=== PATIENT | male | born 1965 | race Caucasian/White ===

== ENCOUNTER 2023-06-27 23:29 | Inpatient (IN) | payer OTHER, SELFPAY ==
[2023-06-27 20:19] VITALS: BP 136/79
[2023-06-27 20:34] VITALS: BP 150/83
[2023-06-27 20:43] VITALS: BMI 27.7
--- NOTE | 2023-06-27 20:53 | ED.GENMED ---
History of Present Illness
General
Chief Complaint: Abdominal Pain
Time Seen by Provider: 06/27/23 20:32
Travel History
Have you had any contact with someone who has COVID-19?: No
Do you have any symptoms of coronavirus? Fever > 100 degrees, chills, cough, shortness of breath, sore throat, loss of taste or smell, muscle aches, or headache?: No
History of Present Illness
History of Present Illness:
57-year-old male with history of GERD presents to the emergency department for evaluation of general abdominal pain developing last night, pain worsened and progressed to the back this morning of fevers and urinary frequency. Was seen in urgent
care earlier this evening and referred to the emergency department for further evaluation. Prior abdominal surgeries include cholecystectomy. No nausea or vomiting. He is visiting here from [facility] on a business trip
Review of Systems
Review of Systems
Allergies reviewed?: Yes
All Other Systems: ROS reviewed and negative except as documented in HPI and ROS
Phy Exam
Physical Exam
Physical Exam:
GEN: Well appearing, NAD, WDWN
Eyes: PERRLA, EOMs intact, no scleral icterus
HENT: NCAT, oral mucosa moist
Lungs: CTAB, no wheezes, rales, rhonchi, normal chest wall excursion
Cardiac: RRR, no M/R/G, no peripheral edema. Radial pulses 2+ bilat
Abdomen: Soft, no rigidity however moderate to severe tenderness to the lower abdomen diffusely
Neuro: AO x 3
MSK: No gross deformity or ecchymosis. No edema. No digital clubbing
Skin: No rashes, petechiae. Normal color, no pallor or jaundice.
Psych: Calm, cooperative, proper hygiene
Course
Orders/Labs/Results
Orders:
Orders
06/27/23 20:44
CT Abd/Pel (IV only)-DH only Urgent
Comment:
Reason For Exam: lower abd pain/fever
0.9% Sodium Chloride 1000 ml [Nss] 1,000 ml IV BOLUS
Diphenhydramine [Benadryl] 25 mg IV NOW STA
Hydrocortisone Sod Succinate [Solu-Cortef] 200 mg IV NOW STA
Ketorolac [Toradol] 15 mg IV NOW STA
06/27/23 20:54
Complete Blood Count/With Diff Urgent
Comprehensive Metabolic Panel Urgent
Lactic Acid Q4H
Comment: CANCEL 2nd LACTIC ACID IF 1st LACTIC ACID IS LESS THAN 2
Urinalysis Reflex To Culture Urgent
Date Specimen was Collected: 06/27/23
Time Specimen was Collected: 20:47
Urine Microscopic Reflex Cult Urgent
Blood Culture Q30M
SILVANA Source: Blood/Venous
Specimen Description:
Blood Culture Q30M
SILVANA Source: Blood/Venous
Specimen Description:
06/27/23 22:45
Piperacillin/Tazo 3.375 Gram [Zosyn] 3.375 gram in 50 ml IV NOW
06/27/23 23:13
Admit/Transfer Patient As Directed
Co-Sign Provider:
Level of Care: Inpatient admission
Assign to:: Medical/Surgical
Physician / Group: Donnie
Diagnosis: Diverticulitis
Reason for Hospitalization: IVFs, IV abx
Expected length of stay greater than two midnights?: Yes
ELOS- Estimated Length of Stay in days: 3
I certify the patient meets the requirements for IP care: Yes
Code Status As Directed
Resuscitation Status: Full Code
Abnormal Lab Results
06/27/23
20:54
WBC 16.5 H 10^3/uL
(4.8-10.8)
Abs Immat Gran (auto) 0.1 H 10^3/uL
(0-0.05)
Absolute Neuts (auto) 13.5 H 10^3/uL
(1.4-6.5)
Absolute Monos (auto) 1.6 H 10^3/uL
(0.1-0.6)
Neutrophils % 82.0 H %
(42.2-75.2)
Lymphocytes % 7.3 L %
(20.5-51.1)
Monocytes % 9.9 H %
(1.7-9.3)
Carbon Dioxide 20 L mmol/L
(22-30)
Glucose 119 H mg/dl
(70-99)
Ur Occult Blood Reflex 3+ A
(Negative)
Urine RBC 3-6 A /HPF
(0-2)
Urine Bacteria (Reflex) Few A
(Negative)
06/27/23 20:54
06/27/23 20:54
Vital Signs
Initial and Last Documented VS:
Initial Vital Signs
Temp Pulse Resp BP Pulse Ox
99.9 F 109 18 136/79 95
06/27/23 20:19 06/27/23 20:19 06/27/23 20:19 06/27/23 20:19 06/27/23 20:19
Last Documented Vital Signs
Temp Pulse Resp BP Pulse Ox
99.9 F 105 16 144/81 94
06/27/23 20:19 06/27/23 20:36 06/27/23 20:36 06/27/23 22:00 06/27/23 22:15
MDM/Problems Addressed
MDM/Problems Addressed:
CT reveals contained microperforation of sigmoid diverticulitis, patient is septic with fever and high leukocytosis. Will admit for IV antibiotics and colorectal surgery consultation
*Critical Care Note
Total Time (30-74mins, 75-104mins- exclusive of procedures): Not Applicable
ED Attending Note
-
Portions of this chart may have been created with voice recognition software.� Occasional wrong word or��sound alike� substitutions may have occurred due to the inherent limitations of voice recognition software.
Discharge Plan
Departure
Patient Disposition: Admit
Date of Disposition: 06/27/23
Time of Disposition: 22:58
Presentation/result/management discussed w/ accepting MD/DO: Hospitalist
Discharge Problem:
Diverticulitis of colon with perforation
Interventions
Interventions:
*Risk Screen - Suicide Last Done: 06/27/23 20:19
*General Assessment Last Done: 06/27/23 20:19
*Neglect/Abuse Screening Last Done: 06/27/23 20:19
ED- Fall Risk Assessment Last Done: 06/27/23 20:35
*ED COVID-19 Vaccine History Last Done: 06/27/23 20:43
KG-Bwbimc-Vsdgwbwiin Assessment Last Done: 06/27/23 20:35
[2023-06-27 21:00] VITALS: BP 122/74
[2023-06-27] MEDS: TORADOL 15 MG IV (21:02)
[2023-06-27] MEDS: SOLU-CORTEF 200 MG IV (21:03)
[2023-06-27] MEDS: NSS 1000 IV (21:03)
[2023-06-27 21:06] LABS: % Basophils 0.1 % (0-2); % Eosinophils 0.3 % (0-6); % Immature Granulocytes 0.4 % (0-0.5); % Lymphocytes 7.3 % (20.5-51.1); % Monocytes 9.9 % (1.7-9.3); Absolute Eosinophils 0.1 10^3/uL (0-0.7); Absolute Immature Granulocytes 0.1 10^3/uL (0-0.05); Absolute Lymphocytes 1.2 10^3/uL (1.2-3.4); Absolute Monocytes 1.6 10^3/uL (0.1-0.6); Absolute Neutrophils 13.5 10^3/uL (1.4-6.5); Hematocrit 40.8 % (39.0-52.0); Hemoglobin 14.7 g/dL (13.0-18.0); Mean Corpuscular Hgb 29.8 pg (27.0-31.0); Mean Corpuscular Volume 82.6 fL (80.0-94.0); Mean Platelet Volume 9.3 fL (7.4-10.4); Nucleated Red Blood Cells % 0 % (-); Platelet Count 208 10^3/uL (130-400); Red Blood Cell Count 4.94 10^6/uL (4.70-6.10); Red Cell Dist. Width 12.5 % (11.5-14.5); Urine Albumin Negative (Neg - Trace); Urine Bilirubin Negative (Negative); Urine Character Clear (Clear); Urine Color Yellow; Urine Glucose Negative (Negative); Urine Ketone Negative (Negative); Urine Leukocyte Negative (Negative); Urine Nitrite Negative (Negative); Urine Occult Blood 3+ (Negative); Urine Specific Gravity 1.015 (<1.030); Urine Urobilinogen Negative (Neg - 1+); White Blood Cell Count 16.5 10^3/uL (4.8-10.8)
[2023-06-27 21:16] LABS: Urine Squamous Cell 0-2 /LPF (Few)
[2023-06-27 21:17] LABS: Urine Bacteria Few (Negative); Urine Mucus Moderate; Urine White Cell 0-2 /HPF (0-5)
[2023-06-27 21:18] LABS: Lactic Acid 1.2 mmol/L (0.7-2.0)
[2023-06-27 21:19] LABS: ALT (SGPT) 24 U/L (0-50); AST (SGOT) 30 U/L (17-59); Albumin 4.2 g/dl (3.5-5.0); Alkaline Phosphatase 73 U/L (38-126); Blood Urea Nitrogen 18 mg/dl (9-20); Calcium 9.6 mg/dl (8.4-10.2); Carbon Dioxide 20 mmol/L (22-30); Chloride 105 mmol/L (98-107); Estimated Creatinine Clearance 99 ml/min; Glucose 119 mg/dl (70-99); Sodium 135 mmol/L (135-145); Total Bilirubin 1.3 mg/dl (0.2-1.3); Total Protein 6.8 g/dl (6.3-8.2); eGFR > 60.00
[2023-06-27 22:00] VITALS: BP 144/81
[2023-06-27] MEDS: BENADRYL 25 MG IV (22:08)
[2023-06-27] MEDS: ZOSYN 50 IV (22:56)
--- NOTE | 2023-06-27 23:08 | W.PN.UPDATE ---
Update Note
Progress Note Update
This note is an addendum to H&P written by JANETH Kauffman
I saw and examined the patient.
The PROSTHETIC TECHNICIAN's note was reviewed and I agree with the note.
Comment:
Mr. Elizabeth Minor is a 57 yo man with hx GERD presents to the ER with generalized abdominal pain that started last ngiht.
Triage VS: T 99.9, P 109, RR 18, BP 136/79, SpO2 95%
LABS: WBC 16.5, Hg 14.7, PLT 208, Na 135, K+ 4.0, Cl 105, CO2 20, Cr 0.9, Glucose 119, liver enzymes WNL
CT A/P
IMPRESSION:
Mild to moderate acute diverticulitis of the mid sigmoid colon with small contained perforation.
Mild hepatomegaly with fatty infiltration.
MAR: benadryl/hydrocortisone; Toradol, IVF bolus, IV Zosyn
Acute Diverticulitis with small contained perforation
Sepsis secondary to above
-admit to med/surg
-continue IV Zosyn
-NPO
-CRS consult
-pain control
--- NOTE | 2023-06-27 23:18 | HPS.HSE ---
Family Physician
-
Family Physician: NOT KNOW UNKNOWN - PT DOES
Chief Complaint
-
Abdominal Pain
History of Present Illness
Patient is a 57 y/o male without significant past medical history who presents with abdominal pain. Patient reports pain began last evening. He describes pain mostly in the lower regions. He reports some associated urinary frequency, and fever
prior to presentation. He denies prior history of diverticulitis. He reports a negative Cologuard test a few years thus he never had a colonoscopy.
Medical History
Past Medical History
Past Medical History: Reports Other
Additional Past Medical History:
GERD
Past Surgical History: Reports Other
Additional Past Surgical History:
Cholecystectomy
Social History
Tobacco: Non-smoker
Alcohol: Occasional
Family History
Family History: Not pertinent
Allergies / Home Medications
Allergies reflects when Allergies were last updated in [facility].
Home Medications with original date entered in [facility]
Allergy/Medication List:
Allergies
Allergy/AdvReac Type Severity Reaction Status Date / Time
iodine Allergy Unknown Unknown Verified 06/27/23 20:19
Home Medications
omeprazole 20 mg capsule,delayed release 20 mg PO DAILY PRN indigestion 06/27/23
Review of Systems
-
A 12 point ROS was completed and negative except as noted: Yes
Constitutional: Reports Fever
Respiratory: Denies Cough or Trouble Breathing
Cardiac: Denies Chest Pain or Palpitations
Abdomen/GI: Reports See HPI
Physical Exam
Vital Signs
Vital Signs
Temp Pulse Resp BP Pulse Ox
99.9 F 105 16 144/81 94
06/27/23 20:19 06/27/23 20:36 06/27/23 20:36 06/27/23 22:00 06/27/23 22:15
Physical Exam
General: Comfortable and Conversant
HEENT: Anicteric and Moist mucous membranes
Respiratory: Clear and Non Labored Respirations
Cardiac: S1/S2, Regular Rhythm and Tachycardia (Slightly)
GI: Soft, Non Distended and Tender (Mild in LLQ, Moderate in Suprapubic and RLQ without rebound or guarding)
Rectal: Deferred by Provider
Musculoskeletal: No Clubbing, No Cyanosis and No Edema
Skin: Warm and Dry
Neuro: Awake, Alert, Oriented and No Motor Deficits
Psych: Calm
Laboratory Results
-
06/27/23 20:54
06/27/23 20:54
Laboratory Results
Lactic Acid 1.2 mmol/L (0.7-2.0) 06/27/23 20:54
Total Bilirubin 1.3 mg/dl (0.2-1.3) 06/27/23 20:54
AST 30 U/L (17-59) 06/27/23 20:54
ALT 24 U/L (0-50) 06/27/23 20:54
Alkaline Phosphatase 73 U/L (38-126) 06/27/23 20:54
Data Reviewed
-
Lab Data: Labs Reviewed by me
Impression/Plan
-
Sepsis secondary to Diverticulitis with Microperforation
-Consult Colorectal Surgery
-Continue NPO/IVFs
-Continue Zosyn
-Continue Dilaudid for pain
DVT proph: Lovenox
Code Status: Full Code
[2023-06-28 00:44] VITALS: BP 115/65; BMI 27.0
[2023-06-28] MEDS: D5/0.45%NACL 1000 IV ×3 (00:52→23:19)
[2023-06-28] MEDS: DILAUDID 0.25 MG IV (00:57)
--- NOTE | 2023-06-28 01:14 | PTCARENOTE ---
Received pt from ED via stretcher. Pt ambulated to bed without assist. AAOx3, VSS, complaints of right abdominal pain. Oriented to floor, call sánchez within reach.
[2023-06-28] MEDS: ZOSYN 50 IV ×4 (05:16→21:25)
[2023-06-28 07:22] VITALS: BP 101/53
[2023-06-28 07:33] LABS: Hematocrit 40.4 % (39.0-52.0); Hemoglobin 14.4 g/dL (13.0-18.0); Mean Corp Hgb Conc. 35.6 g/dL (33.0-37.0); Mean Corpuscular Hgb 30.2 pg (27.0-31.0); Mean Corpuscular Volume 84.7 fL (80.0-94.0); Mean Platelet Volume 9.6 fL (7.4-10.4); Platelet Count 200 10^3/uL (130-400); Red Blood Cell Count 4.77 10^6/uL (4.70-6.10); Red Cell Dist. Width 12.6 % (11.5-14.5); White Blood Cell Count 16.6 10^3/uL (4.8-10.8)
[2023-06-28 07:54] LABS: Blood Urea Nitrogen 18 mg/dl (9-20); Calcium 9.1 mg/dl (8.4-10.2); Carbon Dioxide 23 mmol/L (22-30); Chloride 107 mmol/L (98-107); Estimated Creatinine Clearance 111 ml/min; Glucose 137 mg/dl (70-99); Potassium 4.6 mmol/L (3.5-5.1); Sodium 138 mmol/L (135-145); eGFR > 60.00
[2023-06-28 08:19] LABS: Glucose - Point of Care 127 mg/dl (70-99)
--- NOTE | 2023-06-28 09:34 | W.PN.HOSP.TC ---
Today's Communication/Plan
-
Transition to clears today
Monitor leukocytosis on Zosyn
Try minimize narcotic analgesia if can
Assessment / Plan
Assessment / Plan
Patient is a 57 y/o male without significant past medical history who presents with abdominal pain.
Patient reports pain began last evening. He describes pain mostly in the lower regions. He reports some associated urinary frequency, and fever prior to presentation. He denies prior history of diverticulitis. He reports a negative Cologuard test
a few years thus he never had a colonoscopy.
Physical Exam
General: Comfortable and Conversant
HEENT: Anicteric and Moist mucous membranes
Respiratory: Clear and Non Labored Respirations
Cardiac: S1/S2, Regular Rhythm and Tachycardia (Slightly)
GI: Soft, Non Distended and Tender (Mild in LLQ, Moderate in Suprapubic and RLQ without rebound or guarding)
Rectal: Deferred by Provider
Musculoskeletal: No Clubbing, No Cyanosis and No Edema
Skin: Warm and Dry
Neuro: Awake, Alert, Oriented and No Motor Deficits
Psych: Calm
Sepsis secondary to Diverticulitis with Microperforation
-Consult Colorectal Surgery/no intervention warranted yet and watchful waiting presently
-Continue NPO/IVFs>> to start today
-Continue Zosyn/monitor and trend leukocytosis
-Continue Dilaudid for pain
DVT proph: Lovenox
Code Status: Full Code
Anticipated Discharge: Within 24 hours
Subjective/Interval History
-
Date of Service: June 28, 2023
Minimal abdominal discomfort having some small amount of loose stooling no blood passage feels somewhat better.
Objective Data
-
Labs:
Laboratory Results
06/28/23
07:00
WBC 16.6 H
Hgb 14.4
Hct 40.4
Plt Count 200
Sodium 138
Potassium 4.6
Chloride 107
Carbon Dioxide 23
BUN 18
Creatinine 0.8
Glucose 137 H
Calcium 9.1
Vital Signs:
Vital Signs
Temp Pulse Resp BP Pulse Ox
98.7 F 74 18 101/53 98
06/28/23 07:22 06/28/23 07:22 06/28/23 07:22 06/28/23 07:22 06/28/23 07:22
I&O
06/27/23 06/28/23 06/29/23
06:59 06:59 06:59
Intake Total 0 / 0
Balance 0 / 0
Review of Systems
-
All other systems: Not reviewed unless documented
Abdomen/GI: Reports Abdominal Pain and Diarrhea
Physical Exam
-
General: Well Developed
HEENT: Normocephalic
Respiratory: Clear to Auscultation
Cardiac: Regular Rhythm
GI: Soft, Nontender and Nondistended
Neuro: Awake, Alert and Oriented
Psych: Calm
Data Reviewed
-
Total Time Spent with Patient (in minutes): 56
CT Scan: Report Reviewed by me
Labs: Labs Reviewed by me (Leukocytosis remains at 16.6 similar to admission yesterday left shift)
--- NOTE | 2023-06-28 11:53 | CON.CRS ---
Consultation
-
Date/Time Consultation Requested: 06/28/2023, 00:35
Date/Time Consultation Performed: 06/28/2023, 8:35
Requesting Provider: Oma Kauffman PA-C
Performing Provider: William Jimenez MD
Reason for Consultation: diverticulitis
Medical History
-
Chief Complaint: abdominal pain
History of Present Illness:
57-year-old male with a past medical history of GERD presents to the emergency department due to abdominal pain that started last night. He states the pain started in his lower abdominal area and then radiated to his back. He also felt the
sensation to have to urinate urgently. He denies nausea or vomiting. He went to urgent care and had a fever of 102.4 and was directed to go to the ER. He has no prior history of diverticulitis. He had a cholecystectomy in the past. His grandma
at 85 years old from an unknown cancer. He is from [place] and currently on a business trip. He is a colonoscopy but had a negative Cologuard in the past.
In the ER his white count was 16.5 now 16.6 this morning. He was a little tachycardic on admission which has resolved. CT of the abdomen and pelvis shows mild to moderate acute diverticulitis of the mid sigmoid colon with small contained
perforation. We have been consulted for further surgical recommendations.
Past Medical History
Past Medical History: GERD and Other (Coronary artery spasm at age 21)
Past Surgical History: Cholecystectomy
Social History
Tobacco: Non-Smoker
Alcohol: Occasional (On the weekends)
Drug: None
Employment: Employed
Family History
Family History: Reviewed & Not Pertinent
Allergies / Home Medications
Allergy/AdvReac Type Severity Reaction Status Date / Time
iodine Allergy Unknown Unknown Verified 06/27/23 20:19
�Medication �Instructions �Recorded �Confirmed �Type
omeprazole 20 mg capsule,delayed 20 mg PO DAILY PRN indigestion 06/27/23 06/27/23 History
release
Review of Systems
-
History Source: Patient
Constitutional: Fever
Abdomen/GI: Abdominal Pain
: Urgency
A 10 point review of systems was completed, and was negative except as per HPI.
Physical Exam
Vital Signs
Temp 98.7 F 06/28/23 07:22
Pulse 74 06/28/23 07:22
Resp Rate 18 06/28/23 07:22
Blood pressure 101/53 06/28/23 07:22
SaO2 98 06/28/23 08:00
06/27/23 06/28/23 06/29/23
06:59 06:59 06:59
Actual Weight 87.657 kg
Body Mass Index (BMI) 27.0
Lab Results / Allergies
06/28/23 07:00
06/28/23 07:00
WBC 16.6 10^3/uL (4.8-10.8) H 06/28/23 07:00
Hgb 14.4 g/dL (13.0-18.0) 06/28/23 07:00
Hct 40.4 % (39.0-52.0) 06/28/23 07:00
Plt Count 200 10^3/uL (130-400) 06/28/23 07:00
Abs Immat Gran (auto) 0.1 10^3/uL (0-0.05) H 06/27/23 20:54
Neutrophils % 82.0 % (42.2-75.2) H 06/27/23 20:54
Allergy/AdvReac Type Severity Reaction Status Date / Time
iodine Allergy Unknown Unknown Verified 06/27/23 20:19
Physical Exam
General: Well Developed, Well Nourished and No Apparent Distress
GI: Soft, Tender (Mild left lower quadrant) and Distended (Mild)
Skin: Warm and Dry
Neuro: AO x 3
Data Reviewed
-
CT Scan: Image Personally Visualized and interpreted, Report Reviewed by me and Discussed with Patient
Labs: Labs Reviewed by me, Discussed with Physician and Discussed with Patient
Old Records: Reviewed
Assessment / Plan
-
Assessment: 57-year-old male presents to the ER due to lower abdominal pain and urinary urgency with a fever, found to have sigmoid diverticulitis, first attack
Plan:
1. Monitor WBC. 16.6 this morning. Vitals normal.
2. Advance diet to clears. If he tolerates he can have low residue for dinner.
3. He will need an eventual colonoscopy when he is back home in [place].
4. There is no indication for surgery at this time. If he were to worsen he will require a colectomy with possible colostomy creation.
5. We will follow.
--- NOTE | 2023-06-28 12:21 | CM ---
CM met with pt bedside
Pt from [place] and in [facility] for business trip
Pt resides with spouse at home with no medical DMEs or needs
Marie- Jacki
Discharge Disposition- home, no needs anticipated
[2023-06-28 15:00] VITALS: BP 120/69
[2023-06-28] MEDS: LOVENOX 40 MG SC (17:51)
[2023-06-28] MEDS: BENADRYL 50 MG PO (18:47)
--- NOTE | 2023-06-28 19:20 | PTCARENOTE ---
Pt received Lovenox injection per orders. After about 30-40 minutes pt called RN into room c/o itching and hives/ redness to hands and feet, MD made aware orders for benadryl. Pt has no c/o shortness of breath, no wheezing pox 96% on RA. Instructed
to alert RN with changes in breathing, verbalized understanding, call sánchez within reach, plan of care continues. Per pharmacy Lovenox added to allergy list.
[2023-06-28] MEDS: TYLENOL 650 MG PO (20:27)
[2023-06-28 23:19] VITALS: BP 105/63
[2023-06-29] MEDS: BENADRYL 50 MG PO ×2 (01:02→06:41)
[2023-06-29] MEDS: ZOSYN 50 IV ×2 (03:37→09:10)
[2023-06-29 06:00] VITALS: BMI 26.8
[2023-06-29 06:19] LABS: Hematocrit 38.3 % (39.0-52.0); Mean Corp Hgb Conc. 36.6 g/dL (33.0-37.0); Mean Corpuscular Hgb 30.6 pg (27.0-31.0); Mean Corpuscular Volume 83.6 fL (80.0-94.0); Mean Platelet Volume 9.7 fL (7.4-10.4); Platelet Count 179 10^3/uL (130-400); Red Blood Cell Count 4.58 10^6/uL (4.70-6.10); Red Cell Dist. Width 12.8 % (11.5-14.5); White Blood Cell Count 10.1 10^3/uL (4.8-10.8)
[2023-06-29 06:55] LABS: Blood Urea Nitrogen 14 mg/dl (9-20); Calcium 8.4 mg/dl (8.4-10.2); Carbon Dioxide 21 mmol/L (22-30); Chloride 109 mmol/L (98-107); Estimated Creatinine Clearance 99 ml/min; Glucose 111 mg/dl (70-99); Potassium 4.1 mmol/L (3.5-5.1); Sodium 135 mmol/L (135-145); eGFR > 60.00
[2023-06-29 07:10] VITALS: BP 121/70
--- NOTE | 2023-06-29 07:13 | PTCARENOTE ---
Patient complaining of itchiness/redness to bilateral hands, feet, and lower legs. Patient states he is 'having difficulty taking a deep breath' and reports wheezing and SOB. Pulse ox 99% on RA, lung sounds slightly diminished. PERSONAL LINES AGENT made aware,
asked to give PRN benadryl dose early. Patient reports improvement in breathing after PO benadryl but still continues with itchiness. Plan of care ongoing.
--- NOTE | 2023-06-29 08:15 | W.PN.CRS1 ---
Today's Communication / Plan
-
okay for d/c on low residue diet and abx
Assessment/Plan
-
Assessment: 57-year-old male presents to the ER due to lower abdominal pain and urinary urgency with a fever, found to have sigmoid diverticulitis, first attack
Plan:
1. Monitor WBC. 10.1 this morning. Vitals normal.
2. Tolerating a low residue diet.
3. He will need an eventual colonoscopy when he is back home in [place].
4. There is no indication for surgery at this time. Okay for discharge from our perspective. Follow up with a colorectal surgeon in [place]. Discussed with patient. Remain on low residue diet and finish course of antibiotics.
Subjective Data
Subjective Data
Date of Service: June 29, 2023
Patient states he feels much improved. He has no abdominal pain. He tolerated a diet. He had a reaction to a medication (swelling and itchy hands and feet) and required Benadryl overnight which helped.
Objective Data
-
Vital Signs
Temp Pulse Resp BP Pulse Ox
98.5 F 78 19 105/63 99
06/28/23 23:19 06/28/23 23:19 06/28/23 23:19 06/28/23 23:19 06/28/23 23:19
Intake & Output
06/28/23 06/29/23 06/30/23
06:59 06:59 06:59
Intake Total 0 / 0 1820 / 1820
Balance 0 / 0 1820 / 1820
Intake:
Oral fluids 0 / 0 720 / 720
IV fluids (Total) 1000 / 1000
IV piggybacks 100 / 100
Other:
Number of approximated MODERATE 1 2
amounts of urine
Lab Results
06/29/23 05:58
06/29/23 05:58
Physical Exam
-
General: No Acute Distress and AOx3
Abdomen: Soft, Non Distended and Tender (very mild LLQ)
Skin: Warm and Dry
[2023-06-29] MEDS: D5/0.45%NACL IV (08:41)
--- NOTE | 2023-06-29 09:37 | W.DS.TRANS ---
DC Summary - [employer]
-
Discharge Instructions:
Discharge Diagnosis/Procedures Acute diverticulitis
Diet Low Residue
Activity No restrictions
Driving Restrictions As prior to admission
Instructions:
Stand-Alone Forms:
Changes to Home Medications: Yes
Discharge Medications:
DC Medications w/original date entered in [facility]
omeprazole 20 mg capsule,delayed release 20 mg PO DAILY PRN indigestion 06/27/23
amoxicillin 875 mg-potassium clavulanate 125 mg tablet 1 tab PO Q12H Infection #14 tabs 06/29/23
Home Medication Changes
amoxicillin 875 mg-potassium clavulanate 125 mg tablet 1 tab PO Q12H Infection #14 tabs 06/29/23
Pending Results: No
--- NOTE | 2023-06-29 10:58 | W.DCSUMMARY ---
Discharge Summary
Discharge Data
Date of Admission: 06/27/23
Date of Discharge: 06/29/23
-
Pending Results: No
Hospital Course
57 y/o male without significant past medical history who presents with abdominal pain.
Patient reports pain began last evening. He describes pain mostly in the lower regions. He reports some associated urinary frequency, and fever prior to presentation. He denies prior history of diverticulitis. He reports a negative Cologuard test
a few years thus he never had a colonoscopy.
On presentation the abdomen was actually nondistended and mildly tender left lower quad.. CT imaging did show evidence of sigmoid diverticulitis with microperforation prompting evaluation not only by the medical team on admission but also
colorectal surgery service for follow-up during hospitalization he presented with a significant leukocytosis and had a febrile course leading up to this presentation. Of note the patient is a on a business trip and is here from [place] and was
planning on flying back 2 days from admission. He was placed on empiric antibiotic coverage with piperacillin/tazobactam. Initial white count elevation remained elevated following morning at 16,000 but quickly resolved on 28 June tachycardia
resolved abdominal pain resolved and colorectal surgery felt there is no need for intervention to his diet was advanced on the first hospital day and has been tolerated to low residue prior to his discharge of note the patient had DVT prophylaxis
with Lovenox and apparently developed an acute allergic reaction to the developing a a macular rash with swelling without evidence of anaphylaxis and Lovenox was discontinued and he was placed on Benadryl with good result. It is felt at this time
the patient is medically stable for discharge he will be placed on Augmentin 875 mg twice daily for the next week he is told to obtain an [id number] supply of Benadryl or Zyrtec for any ongoing itching from his allergic reaction to Lovenox.
He was instructed on a low residue diet. He did not supply us with a preferred pharmacy so we wrote a prescription for his Augmentin. There is no apparent contraindication or medical issue with him flying back to [place] later today as long as
he complies with a judicious diet in the near term.
Discharge Plan
-
Patient Disposition: Home (Routine Discharge)
Discharge Diagnosis/Procedures: Acute diverticulitis
Diet: Low Residue
Activity: No restrictions
Driving Restrictions: As prior to admission
Referrals:
UNKNOWN - PT DOES,NOT KNOW [Family Provider] -
Additional Discharge Medication Instructions: Can use babj-irh-gtuiigr Zyrtec or Benadryl for residual swelling in hands and feet from allergic reaction
Prescriptions:
New
amoxicillin-pot clavulanate 875-125 mg tablet
1 tab PO Q12H Qty: 14 0RF
Continued
omeprazole 20 mg Capsule,Delayed Release(Dr/Ec)
20 mg PO DAILY PRN (Reason: indigestion)
Discharge Orders:
Discharge Patient (As Directed); Ordered 06/29/23
Ordered By: Hardik Porter
Discharge Date and Time
Print Language: SWEDISH
--- NOTE | 2023-06-29 14:17 | CM ---
m with patient.he is stable for dc home with no needs.
== END 2023-06-29 10:50 | disposition home or self-care (01) | DRG 392 ==
LOC: 4 EAST ACU 23:29
PROVIDERS: Physician Assistant; Physician Assistant Medical; ADMITTING PHYSICIAN Student in an Organized Health Care Education/Training Program; ATTENDING PHYSICIAN Internal Medicine; CONSULT PHYSICIAN Surgery; EMERGENCY PHYSICIAN Emergency Medicine
DX: K57.20 Diverticulitis of large intestine with perforation and abscess without bleeding (principal); R35.0 Frequency of micturition
CPT/HCPCS: 74177; 80048; 80053; 81003; 81015; 82962; 83605; 85025; 85027; 87040; 96361; 96365; 96375; 99285; Q9967